=== PATIENT | female | born 1935 | race Caucasian/White ===

== ENCOUNTER 2018-01-11 11:57 | Emergency (ER) | END 2018-01-11 13:10 | disposition home or self-care (01) ==

== ENCOUNTER 2018-06-26 16:45 | Inpatient (IN) | END 2018-06-29 16:54 | disposition home or self-care (01) | DRG 872 ==

== ENCOUNTER → 2019-05-04 | Outpatient (CLI) | payer MEDICARE, OTHER ==
[~2019-05-04] MED LIST: AMLO5TAB4 PO; ATEN-51 PO; HYDR25TA6 PO; LEVO250T22 PO; LIDO700A6 TD; LOSA50TA2 PO; POTA20TA96 PO; RABE20TA18 PO
== END | disposition home or self-care (01) ==
LOC: VAS 09:55
PROVIDERS: ATTEND Internal Medicine
DX: H53.9 Unspecified visual disturbance (principal); I70.90 Unspecified atherosclerosis
CPT/HCPCS: 93880